=== PATIENT | male | born 1955 | race Caucasian/White ===

== ENCOUNTER 2017-11-16 08:05 | Day surgery (SDC) | payer BC, OTHER ==
[~2017-11-16] VITALS: Ht 182.9 cm; Wt 104.3 kg
[~2017-11-16 08:05] MED LIST: ACETAMINOPHEN 325 MG TAB PO PRN; AMLO5TAB PO; ASPI1TAB PO; ATEN50TA2; CELE20TA PO; CEPACOL; COLA100C2; COLA100C5 PO; CYCLOPENTOLATE 2% OPHTH SOLN 2ML BTL OD ONE; FLEXERIL; HYDR12CA PO; LIDOCAINE 3.5 % 1ML OPHTH TOPICAL GEL OU ONE; LISI30TA3; LISI40TAB PO; MULTIVIT; OFLOXACIN 0.3 % (OCUFLOX) OPTH SOL 5ML OD ONE; PERC5TAB8; PERC7.5T8; PHENYLEPHRINE 2.5% OPHTH SOL 2ML OD ONE; PHENYLEPHRINE HCL 10 % OPHTH. SOL 5ML OD PRN; PRIL20CA PO; PROPARACAINE 0.5% OPHTH SOL 15ML OD PRN; SIMV20TA2 PO; TROPICAMIDE 1% OPHTH SOLN 2ML OD ONE; VITA500T
[2017-11-16] MEDS ORDERED: KETOROLAC 0.5% OPHTH SOLN OD ONE (08:15)
[2017-11-16] MEDS ORDERED: AcetaZOLAMIDE 500 MG ER CAP PO ONE (08:15)
[2017-11-16] MEDS ORDERED: TRIMETHOBENZAMIDE 300 MG CAP PO PRN (08:15)
[2017-11-16] MEDS ORDERED: CEFUROXIME 1MG/0.1ML INTRACAMERAL INJ As Ordered ONE (09:35)
[2017-11-16] MEDS ORDERED: POVIDONE-IODINE 5% OPHTH PREP SOL 30ML As Ordered ONE (09:35)
[2017-11-16] MEDS ORDERED: ACETYLCHOLINE OPHTH SOLN 1% 2ML (MIOCHOL-E) As Ordered ONE (09:35)
[2017-11-16] MEDS ORDERED: LIDOCAINE 1% SDV 5 ML VIAL As Ordered ONE (09:35)
[2017-11-16] MEDS ORDERED: fentaNYL 100 MCG/2 ML INJECTION (J3010) As Ordered ONE (09:49)
[2017-11-16] MEDS ORDERED: MIDAZOLAM INJ 2 MG/2 ML VIAL (J2250) As Ordered ONE (09:49)
[2017-11-16 10:30] VITALS: BP 147/80
--- NOTE | 2017-11-16 17:36 | RO ---
DATE OF PROCEDURE: 11/16/2017 PREPROCEDURE DIAGNOSIS: Age-related nuclear cataract right eye. POSTPROCEDURE DIAGNOSIS: Age-related nuclear cataract right eye. PROCEDURE: Phacoemulsification and posterior chamber intraocular lens implantation. The lens used was [id number] 18.0 diopter. SURGEON: Ashlie Steen MD ENCEPHALOGRAPHER: ANESTHESIA: Topical with sedation. DESCRIPTION OF PROCEDURE: The patient was prepped and draped in the usual fashion. A lid speculum was placed between the lids. The eye was fixated. A stab incision was made to the anterior chamber, and 1% non-preserved lidocaine was instilled. Then, viscoelastic was instilled. The eye was re-fixated. A 2.75 mm sapphire keratome was used to make a clear corneal temporal limbal incision. Capsulorrhexis was begun with a 30-gauge bent needle and then carried out in a circular fashion with capsulorrhexis forceps. The lens was hydrodissected, and then the phacoemulsification unit was used to make a groove in the nucleus in two meridians. The nucleus was then cracked into four quadrants. Each quadrant was removed with the phacoemulsification unit. Any remaining cortex was removed with the irrigation and aspiration (I and A) unit. Capsular bag was refilled with viscoelastic. A posterior chamber intraocular lens was placed in the capsular bag without difficulty. Any remaining viscoelastic was removed with the I and A unit. The wound was hydrated, and Miochol and cefuroxime were instilled into the anterior chamber. The patient tolerated the procedure well and went to the recovery room in stable condition.
== END 2017-11-16 10:35 | disposition home or self-care (01) ==
LOC: M SDC 08:05
PROVIDERS: ATTEND Ophthalmology
DX: H25.11 Age-related nuclear cataract, right eye (principal); I25.2 Old myocardial infarction; I10 Essential (primary) hypertension; E78.00 Pure hypercholesterolemia, unspecified; K21.9 Gastro-esophageal reflux disease without esophagitis; R20.2 Paresthesia of skin; M12.9 Arthropathy, unspecified; F41.9 Anxiety disorder, unspecified; F32.9 Major depressive disorder, single episode, unspecified; Z79.899 Other long term (current) drug therapy; Z79.82 Long term (current) use of aspirin; Z98.1 Arthrodesis status; Z87.891 Personal history of nicotine dependence
CPT/HCPCS: 66984; J2250; J3010

== ENCOUNTER 2017-12-07 07:05 | Day surgery (SDC) | payer BC, OTHER ==
[2017-12-07] MEDS: CYCLOPENTOLATE 2% OPHTH SOLN 2ML BTL OS (07:00)
[~2017-12-07 07:05] MED LIST changes: +ACETAMINOPHEN 325 MG TAB PO; -ACETAMINOPHEN 325 MG TAB PO PRN; -AMLO5TAB PO; -ASPI1TAB PO; -ATEN50TA2; -CELE20TA PO; -CEPACOL; -COLA100C2; -COLA100C5 PO; -CYCLOPENTOLATE 2% OPHTH SOLN 2ML BTL OD ONE; -FLEXERIL; -HYDR12CA PO; -LIDOCAINE 3.5 % 1ML OPHTH TOPICAL GEL OU ONE; -LISI30TA3; -LISI40TAB PO; -MULTIVIT; -OFLOXACIN 0.3 % (OCUFLOX) OPTH SOL 5ML OD ONE; -PERC5TAB8; -PERC7.5T8; -PHENYLEPHRINE 2.5% OPHTH SOL 2ML OD ONE; -PHENYLEPHRINE HCL 10 % OPHTH. SOL 5ML OD PRN; +PHENYLEPHRINE HCL 10 % OPHTH. SOL 5ML OS; -PRIL20CA PO; -PROPARACAINE 0.5% OPHTH SOL 15ML OD PRN; +PROPARACAINE 0.5% OPHTH SOL 15ML OS; -SIMV20TA2 PO; -TROPICAMIDE 1% OPHTH SOLN 2ML OD ONE; -VITA500T
[2017-12-07] MEDS ORDERED: fentaNYL 100 MCG/2 ML INJECTION (J3010) As Ordered (07:13)
[2017-12-07] MEDS ORDERED: MIDAZOLAM INJ 2 MG/2 ML VIAL (J2250) As Ordered (07:13)
[2017-12-07] MEDS: OFLOXACIN 0.3 % (OCUFLOX) OPTH SOL 5ML OS (07:36)
[2017-12-07] MEDS: TROPICAMIDE 1% OPHTH SOLN 2ML OS (07:36)
[2017-12-07] MEDS: LIDOCAINE 3.5 % 1ML OPHTH TOPICAL GEL OU (07:36)
[2017-12-07] MEDS: PHENYLEPHRINE 2.5% OPHTH SOL 2ML OS (07:36)
[2017-12-07] MEDS: ACETYLCHOLINE OPHTH SOLN 1% 2ML (MIOCHOL-E) As Ordered (08:52)
[2017-12-07] MEDS: POVIDONE-IODINE 5% OPHTH PREP SOL 30ML As Ordered (08:52)
[2017-12-07] MEDS: LIDOCAINE 1% SDV 5 ML VIAL As Ordered (08:53)
[2017-12-07] MEDS: CEFUROXIME 1MG/0.1ML INTRACAMERAL INJ As Ordered (08:53)
[2017-12-07] MEDS: HEALON DUET (HEALON 10MG/ML 0.55ML & HEALON ENDOCOAT 30MG/ML 0.85ML) As Ordered (08:53)
[2017-12-07] MEDS: AcetaZOLAMIDE 500 MG ER CAP PO (09:29)
[2017-12-07] MEDS: KETOROLAC 0.5% OPHTH SOLN OS (09:29)
[2017-12-07] MEDS ORDERED: TRIMETHOBENZAMIDE 300 MG CAP PO (09:30)
== END 2017-12-07 09:51 | disposition home or self-care (01) ==
LOC: M SDC 07:05
DX: H25.092 Other age-related incipient cataract, left eye (principal); I10 Essential (primary) hypertension; I25.2 Old myocardial infarction; E78.00 Pure hypercholesterolemia, unspecified; K21.9 Gastro-esophageal reflux disease without esophagitis; R20.0 Anesthesia of skin; M12.9 Arthropathy, unspecified; M54.2 Cervicalgia; F41.9 Anxiety disorder, unspecified; F32.9 Major depressive disorder, single episode, unspecified; Z79.899 Other long term (current) drug therapy; Z98.1 Arthrodesis status
CPT/HCPCS: 66984

== ENCOUNTER → 2021-08-13 | Outpatient (REF) | payer BC, OTHER, MEDICARE ==
[~2021-08-13] MED LIST changes: -ACETAMINOPHEN 325 MG TAB PO; +AMLO5TAB PO; +ASPI81TA26 PO; +ATEN50TA2; +CELE20TA PO; +CEPACOL; +COLA100C2; +COLA100C5 PO; +FLEXERIL; +HYDR12CA PO; +LISI30TA3; +LISI40TA4 PO; +MULTIVIT; +PERC5TAB8; +PERC7.5T8; -PHENYLEPHRINE HCL 10 % OPHTH. SOL 5ML OS; +PRIL20CA PO; -PROPARACAINE 0.5% OPHTH SOL 15ML OS; +SIMV20TA22 PO; +VITA500T
== END ==
LOC: M SMT 17:55
PROVIDERS: ATTEND Urology
DX: R31.0 Gross hematuria (principal)

== ENCOUNTER → 2021-09-18 | Outpatient (REF) | payer MEDICARE, OTHER, BC ==
[2021-09-18 13:38] LABS: APPEARANCE, URINE CLEAR (CLEAR); BACTERIA, URINE AUTO NEGATIVE (NEGATIVE); BILIRUBIN, URINE AUTO NEGATIVE (NEGATIVE); BLOOD, URINE BLOOD NEGATIVE (NEGATIVE); COLOR, URINE YELLOW (YELLOW); GLUCOSE, URINE (UA) AUTO NEGATIVE (NEGATIVE); KETONE, URINE AUTO NEGATIVE (NEGATIVE); LEUKOCYTE ESTERASE, URINE AUTO NEGATIVE (NEGATIVE); NITRITE, URINE AUTO NEGATIVE (NEGATIVE); PROTEIN, URINE AUTO NEGATIVE (NEGATIVE); RBC, URINE AUTO 0 /HPF (0-3); SPECIFIC GRAVITY URINE AUTO 1.014 (1.002-1.035); SQUAMOUS EPITHELIAL CELL UR AU 0 /HPF (0-6); UROBILINOGEN, URINE AUTO 0.2 mg/dL (0.0-2.0); WBC, URINE AUTO 0 /HPF (0-3)
== END ==
LOC: M SMT 13:03
PROVIDERS: ATTEND Urology
DX: R31.29 Other microscopic hematuria (principal)